=== PATIENT | male | born 1960 ===

== ENCOUNTER → 2024-07-06 08:04 | Outpatient (BNVA) | payer MEDICARE, SELFPAY | PROVIDERS: PCP Nurse Practitioner Primary Care; Referring Provider Nurse Practitioner Primary Care; Visit Provider Physician Assistant Surgical | DX: J44.9 Chronic obstructive pulmonary disease, unspecified (principal); F17.200 Nicotine dependence, unspecified, uncomplicated | CPT/HCPCS: 94618; 99205 ==

== ENCOUNTER 2024-07-06 09:29 | Outpatient (REF) | payer MEDICARE, SELFPAY ==
--- OUTSIDE RECORDS SUMMARY | 2024-07-06 09:31 | XMS_ITS | Encounter Summary ---
[facility] Organization [facility] [place] [address] Care Team Providers Care Driver/Merchandiser Name Role Phone Stormy Jeffery APRN Primary Care Provider [phone] Encounter Details Date Type Department Care Team (Latest Contact Info) Description 04/18/2024 Travel Social History Tobacco Use Types Packs/Day Years Used Date Smoking Tobacco: Never Assessed Sex and Gender Information Value Date Recorded Sex Assigned at Not on file Gender Identity Not on file Sexual Orientation Not on file documented as of this encounter Plan of Treatment Not on file documented as of this encounter Visit Diagnoses Not on filedocumented in this encounter Care Teams Driver/Merchandiser Relationship Specialty Start Date End Date Stormy Jeff[place] [address] [place] [address] PCP - General Urgent Care 02/03/24 documented as of this encounter
--- OUTSIDE RECORDS SUMMARY | 2024-07-06 09:31 | XMS_ITS | Encounter Summary ---
Author Organization [facility] [place] [address] Care Team Providers Care Steel Unloader Name Role Phone Stormy Jeffery APRN Primary Care Provider [phone] Reason for Referral * Consultation (Routine) - Closed Specialty Diagnoses / Procedures Referred By Charly escudero Referred To Contact Dermatology Diagnoses Skin lesion of back Stormy [place] [address] [place] [address] [facility] Dermatology [address] [place] [address] Referral ID Status Reason Start Date Expiration Date V isits Requested Visits Authorized [id number] Closed Consult, Test & Treat PCP Updated and/or Approved 01/27/2024 01/26/2025 1 1 Encounter Details Date Type Department Care Team (Latest Contact Info) Description 02/03/2024 Transcribe Orders eDH Incoming Referrals [phone] Stormy Jeffery APRN [place], [place] [id number] Skin lesion of back Social History Tobacco Use Types Packs/Day Years Used Date Smoking Tobacco: Never Assessed Sex and Gender Information Value Date Recorded Sex Assigned at Not on file Gender Identity Not on file Sexual Orientation Not on file documented as of this encounter Plan of Treatment Scheduled Referrals Name Type Priority Associated Diagnoses Order Schedule Referral to Dermatology Outpatient Referral Routine Skin lesion of back Ordered: 02/03/2024 documented as of this encounter Visit Diagnoses Diagnosis Skin lesion of back Unspecified disorder of skin and subcutaneous tissue documented in this encounter Care Teams Steel Unloader Relationship Specialty Start Date End Date Stormy Jeffery [place] [address] [place] [address] PCP - General Urgent Care 02/03/24 documented as of this encounter
--- OUTSIDE RECORDS SUMMARY | 2024-07-06 09:31 | XMS_ITS | Encounter Summary ---
Author Organization [facility] [place] [address] Care Team Providers Care Sports Centre Manager Name Role Phone Unavailable Primary Care Provider Unavailabl e Encounter Details Date Type Department Care Team (Late st Contact Info) Description 11/30/2023 Interpretation Only [facility] [address] [place] [id number] Chava Ware MD [address] [place] [address] Social History Tobacco Use Types Packs/Day Years Used Date Smoking Tobacco: Never Assessed Sex and Gender Information Value Date Recorded Sex Assigned at Not on file Gender Identity Not on file Sexual Orientation Not on file documented as of this encounter Plan of Treatment Not on file documented as of this encounter Procedures Procedure Name Priority Date/Time Associated Diagnosis Comments XR CHEST ONE VIEW STAT 11/30/2023 7:5 8 PM EDT documented in this encounter Results * XR Chest One View (11/30/2023 7:58 PM EDT) PT CLASS E RAD ADMITDTTM [id number] RAD PT RAD INFO [id number]^Brooke an^Chava RAD EXAM DESC XCXR1^XR Chest 1 View^RIS RAD Anatomical Region Laterality Modality Chest N/A Radiographic Janine ging 11/30/2023 7:58 PM EDT Impressions 11/30/2023 8:11 PM EDT No acute finding. Thank you for letting us participate in the care of this patient. ??If you are a health care provider and have any questions regarding this report, please contact the number below. ??For patients who have questions please contact the health long term care phlebotomist that requested your imaging first. ? Narrative 11/30/2023 8:11 PM EDT EXAMINATION: XR Chest 1 View CLINICAL HISTORY: Chest Pain TECHNIQUE: Single view chest COMPARISON: None FINDINGS: The lungs are clear. The joselo and cardiomediastinal silhouette are normal. No pleural collection or pneumothorax. Review of bone windows is unremarkable. Procedure Note Mac Bedoya MD - 11/30/2023 EXAMINATION: XR Chest 1 View CLINICAL HISTORY: Chest Pain TECHNIQUE: Single view chest COMPARISON: None FINDINGS: The lungs are clear. The joselo and cardiomediastinal silhouette are normal.No pleural collection or pneumothorax. Review of bone windows is unremarkable. IMPRESSION No acute finding. Thank you for letting us participate in the care of this patient. If youare a health care provider and have any questions regarding this report,please contact the number below. For patients who have questions please contactthe health long term care phlebotomist that requested your imaging first. Chava Ware MD IMG DX ORDERABLES documented in this encounter Visit Diagnoses Not on filedocumented in this encounter
--- OUTSIDE RECORDS SUMMARY | 2024-07-06 09:31 | XMS_ITS | Encounter Summary ---
[place] [address] Care Team Providers Care Contract Management Specialist Name Role Phone Stormy Jeffery APRN Primary Care Provider [phone] Encounter Details Date Type Department Care Team (Late st Contact Info) Description 05/25/2024 [place] [id number] Nadine Noriega RT Social History Tobacco Use Types Packs/Day Years Used Date Smoking Tobacco: Never Assessed Sex and Gender Information Value Date Recorded Sex Assigned at Not on file Gender Identity Not on file Sexual Orientation Not on file documented as of this encounter Miscellaneous Notes * Telephone Encounter - Nadine Noriega RT - 05/25/2024 3:37 PM EDT Called Alexa in follow up to her message requesting pulm rehab appointment for René- she noted that she is his DPOA. Reviewed currently unable to find this documentation in edh. reviewed [facility] pulmonary rehab currently on hold secondary to staffing limitations. documented in this encounter Plan of Treatment Not on file documented as of this encounter Visit Diagnoses Not on filedocumented in this encounter Care Teams Contract Management Specialist Relationship Specialty Start Date End Date Stormy Jeffery [place] [address] [place] [address] PCP - General Urgent Care 02/03/24 documented as of this encounter
--- OUTSIDE RECORDS SUMMARY | 2024-07-06 09:31 | XMS_ITS | Encounter Summary ---
Author [place] [address] Care Team Providers Care Sheet Metal Welder Name Role Phone Stormy Jeffery APRN Primary Care Provider [phone] Reason for Referral * Rehabilitation (Routine) - Authorized Specialty Diagnoses / Procedures Referred By Charly escudero Referred To Contact Rehabilitation Diagnoses Centrilobular emphysema Stormy [place] [address] [place] [address] [facility] [place] [address] Referral ID Status Reason Start Date Expiration Date Visits Requested Visits Authorized [id number] Authorized Evaluate and Treat PCP Updated and/or Approved 04/22/2024 04/22/2025 12 12 Encounter Details Date Type Department Care Team (Latest Contact Info) Description 05/06/2024 Transcribe Orders eDH Incoming Referrals [phone] Stormy Jeffery APRN [place], [place] [id number] Centrilobular emphysema Social History Tobacco Use Types Packs/Day Years Used Date Smoking Tobacco: Never Assessed Sex and Gender Information Value Date Recorded Sex Assigned at Not on file Gender Identity Not on file Sexual Orientation Not on file documented as of this encounter Plan of Treatment Scheduled Referrals Name Type Priority Associated Diagnoses Orde r Schedule Referral to Pulmonary Rehab Outpatient Referral Routine Centrilobular emphysema Ordered: 05/06/2024 documented as of this encounter Visit Diagnoses Diagnosis Centrilobular emphysema Other emphysema documented in this encounter Care Teams Sheet Metal Welder Relationship Specialty Start Date End Date Stormy Jeffery APRN [facility] [place] [address] PCP - General Urgent Care 02/03/24 documented as of this encounter
--- OUTSIDE RECORDS SUMMARY | 2024-07-06 09:31 | XMS_ITS | Encounter Summary ---
Author Organization [facility] Address [facility] [place] [address] Care Team Providers Care Missile Pad Mechanic Name Role Phone Stormy Jeffery CATHERINE Primary Care Provider [phone] Reason for Visit * Consultation (Routine) - Closed Specialty Diagnoses / Procedures Referred By Charly escudero Referred To Contact Dermatology Diagnoses Skin lesion of back KurtStormy hobsonCATHERINE [address] [place] [address] [facility] Dermatology [address] [place] [address] Referral ID Status Reason Start Date Expiration Date V isits Requested Visits Authorized [id number] Closed Consult, Test & Treat PCP Updated and/or Approved 01/27/2024 01/26/2025 1 1 Encounter Details Date Type Department Care Team (Late st Contact Info) Description 06/29/2024 3:20 PM EDT Office Visit Dermatology at [facility] [address] [place] [phone] Meet Gaxiola MD [facility] [address] [address] Neoplasm of unspecified behavior of bone, soft tissue, and skin Social History Tobacco Use Types Packs/Day Years Used Date Smoking Tobacco: Never Assessed Sex and Gender Information Value Date Recorded Sex Assigned at Not on file Gender Identity Not on file Sexual Orientation Not on file documented as of this encounter Progress Notes * Meet Gaxiola MD - 06/29/2024 3:20 PM EDT Images from the original note were not included. DEPARTMENT OF DERMATOLOGY Medical Dermatology Clinic Note Provider: Meet Gaxiola MD Patient's preferred name Henrry Preferred contact method for results [x]Phone []myD-H []Letter Detailed phone message OK? Yes Are there any other people with whom we may discuss your care? No Past Medical History Date, location, treatment Melanoma No Dysplastic nevi No SCC No BCC No AKs Yes UV Exposure & Protection N Other relevant past medical history - Depression Family History Details Melanoma Unknown NMSC Unknown Other relevant family history No Social History Occupation: Pre-Procedure Questions Details Allergy to lidocaine, epinephrine, Dermabond, chlorhexidine, or adhesives Bleeding disorder or blood thinners Implanted devices (Pacemaker, defibrillator, deep brain stimulator, cochlear implant) No History of Present Illness: Henrry Conley is a 64 y.o. Patient is referred to the clinic at [facility] of Stormy Jeffery for a concerning lesion on the left shoulder. Patient reports the following: - Lesion on the left shoulder, present for ~5 years. Slowly increasing in size. Patient endorses picking at lesion. He has applied bacitracin previously without improvement. It has a history of spontaneous bleeding. Review of Systems: General: Feeling well. Skin: No other skin concerns. Medications: Reviewed in eD-H Allergies: Reviewed in eD-H Skin Examination: Focused skin examination of the back was normal with the exception of the findings below. Assessment/Plan DDx. BCC vs. Traumatic Erosion - 2cm pink scaly plaque with hemorrhagic crust on the left shoulder (Figure 1). - Discussed common etiologies of BCC and other common skin cancers. - Recommended a skin biopsy to confirm/clarify the nature of the skin lesion. After discussion of potential risks (scarring, bleeding, infection) and recurrence, patient agreed to proceed. - Patient denies known allergies to lidocaine and epinephrine. Procedure: Skin shave biopsy Location: Left posterior shoulder Time of procedure: 3:26 PM Discussed indications for procedure and expectations including risks and benefits. Verbal consent obtained. Time out performed. Skin prepped with alcohol. Local anesthesia with 1% xylocaine, 1/100,000 epinephrine. A sample of the lesion was removed by shave technique to the level of the dermis and s ubmitted to Pathology. Hemostasis obtained (AlCl). There were no complications; patient tolerated the procedure well. Wound dressed. Post-procedure expectations, wound care and activity restrictions reviewed. - Follow-up based on pathology results. Figure 1 Photo(s) taken and charted with patient's verbal consent. Other: N/A RTC: Pending pathology; 6 months for FSE []Note routed to post secondary professional [x]Recall placed in scheduling system []Appointment scheduled at checkout Scribe attestation: Donte Jb Patricia has performed the documentation for this encounter in the presence of and acting as a scribe for Meet Gaxiola MD. I performed the above scribed service and agree with the accuracy of the documentation in this encounter. Reviewed and signed by: Meet Gaxiola MD Dermatology [facility] Patient seen and evaluated with staff patient case coordinator: Elissa Epperson MD Department of Dermatology [facility] documented in this encounter Plan of Treatment Pending Results Name Type Priority Associated Diagnoses Date /Time Surgical Pathology, Dermatology Pathology/Cyto logy Routine Neoplasm of unspecified behavior of bone, soft tissue, and skin 06/29/2024 3:34 PM EDT documented as of this encounter Visit Diagnoses Diagnosis Neoplasm of unspecified behavior of bone, soft tissue, and skin documented in this encounter Care Teams Missile Pad Mechanic Relationship Specialty Start Date End Date Stormy Jeffery APRN [facility] [address] PCP - General Urgent Care 02/03/24 documented as of this encounter
--- OUTSIDE RECORDS SUMMARY | 2024-07-06 09:31 | XMS_ITS | Encounter Summary ---
[facility] [place] [address] Care Team Providers Care Helicopter Pilot Instructor Name Role Phone Stormy Jeffery APRN Primary Care Provider [phone] Encounter Details Date Type Department Care Team (Latest Contact Info) Description 06/29/2024 Travel Social History Tobacco Use Types Packs/Day Years Used Date Smoking Tobacco: Never Assessed Sex and Gender Information Value Date Recorded Sex Assigned at Not on file Gender Identity Not on file Sexual Orientation Not on file documented as of this encounter Plan of Treatment Not on file documented as of this encounter Visit Diagnoses Not on filedocumented in this encounter Care Teams Helicopter Pilot Instructor Relationship Specialty Start Date End Date Stormy Jeffery [place] [address] [place] [address] PCP - General Urgent Care 02/03/24 documented as of this encounter
--- OUTSIDE RECORDS SUMMARY | 2024-07-06 09:31 | XMS_ITS | Encounter Summary ---
[place] [address] Care Team Providers Care Electronic Scale Subassembler Name Role Phone Unavailable Primary Care Provider Unavailabl e Encounter Details Date Type Department Care Team (Late st Contact Info) Description 11/30/2023 Interpretation Only [facility] [address] [place] [phone] Chava Ware MD [address] [place] [address] Social History Tobacco Use Types Packs/Day Years Used Date Smoking Tobacco: Never Assessed Sex and Gender Information Value Date Recorded Sex Assigned at Not on file Gender Identity Not on file Sexual Orientation Not on file documented as of this encounter Plan of Treatment Not on file documented as of this encounter Procedures Procedure Name Priority Date/Time Associated Diagnosis Comments CT ABDOMEN AND PELVIS W CONTRAST STAT 11/30/2023 8:51 PM EDT documented in this encounter Results * CT Abdomen & Pelvis w Contrast (11/30/2023 8:51 PM EDT) PT CLASS E RAD ADMITDTTM [id number] RAD PT RAD INFO [id number]^Brooke an^Chava RAD EXAM DESC CTAPW^CT Abdomen and Pelvis w/ Contrast^RIS RAD Anatomical Region Laterality Modality Abdomen, Pelvis Computed Tomogra phy 11/30/2023 8:50 PM EDT Impressions 11/30/2023 9:11 PM EDT 1. ??No acute infectious/inflammatory process within the abdomen or pelvis. 2. ??Diverticulosis with no evidence of acute diverticulitis. 3. ??Severe centrilobular emphysema in the lung bases. Thank you for letting us participate in the care of this patient. ??If you are a health care provider and have any questions regarding this report, please contact the number below. ??For patients who have questions please contact the health patient care that requested your imaging first. ? Electronically signed by: Mandeep Mora MD, [facility] ([phone]), at 11/30/2023 9:11 PM Narrative 11/30/2023 9:11 PM EDT EXAMINATION: CT Abdomen and Pelvis w/ Contrast CLINICAL HISTORY: sob, tachycardic, abdo pain x weeks TECHNIQUE: Helical CT of the abdomen and pelvis following the intravenous administration of 100 mL of Omnipaque 350. Oral contrast was not administered. COMPARISON: None FINDINGS: Lower chest: Extensive centrilobular emphysema. No airspace opacity to suggest pneumonia. No pleural effusions. Large right middle lobe bulla. Liver: Normal size and attenuation without lesions. Bile ducts: Nondilated. Gallbladder: No calcified gallstones. Normal caliber wall. Pancreas: Normal attenuation without ductal dilatation. Spleen: Normal. Adrenals: Normal. Kidneys: Normal renal size. Normal symmetric renal enhancement. No hydronephrosis. No renal or ureteral calculi within limitations of contrast-enhanced technique. Urinary Bladder: Normal. Vasculature: Atherosclerotic disease of the nonaneurysmal abdominal aorta. Origins of the celiac axis and SMA are widely patent. Normal caliber of the IVC. The portal vein and hepatic veins are patent. Lymph Nodes: No lymphadenopathy. Bowel: Normal lower esophagus. Moderate distention of the stomach with ingested material with otherwise normal appearance of the stomach. Normal duodenum. No air or fluid filled dilated loops of bowel to suggest obstruction. Small quantity of stool throughout the colon. Diverticulosis involving the descending colon and sigmoid colon with no evidence of acute diverticulitis. Normal terminal ileum. Normal appendix. No bowel wall thickening. Peritoneum and retroperitoneum: No free fluid. No pneumoperitoneum. No loculated fluid collection or mesenteric inflammation. Abdominal wall: Trace fat-containing umbilical hernia with no adjacent inflammation. Trace left fat-containing inguinal hernia with no inflammation. Reproductive organs: Normal. Osseous structures: Well-circumscribed peripherally sclerotic 6 mm lesion in the medial right iliac bone (series 3 image 95), with no aggressive features. No acute osseous findings. No suspicious osseous lesions. Procedure Note Mandeep Mora MD - 11/30/2023 EXAMINATION: CT Abdomen and Pelvis w/ Contrast CLINICAL HISTORY: sob, tachycardic, abdo pain x weeks TECHNIQUE: Helical CT of the abdomen and pelvis following theintravenous administration of 100 mL of Omnipaque 350. Oral contrast was notadministered. COMPARISON: None FINDINGS: Lower chest: Extensive centrilobular emphysema. No airspace opacity tosuggest pneumonia. No pleural effusions. Large right middle lobe bulla. Liver: Normal size and attenuation without lesions. Bile ducts: Nondilated. Gallbladder: No calcified gallstones. Normal caliber wall. Pancreas: Normal attenuation without ductal dilatation. Spleen: Normal. Adrenals: Normal. Kidneys: Normal renal size. Normal symmetric renal enhancement. No hydronephrosis. No renal or ureteral calculi within limitations of contrast-enhanced technique. Urinary Bladder: Normal. Vasculature: Atherosclerotic disease of the nonaneurysmal abdominalaorta. Origins of the celiac axis and SMA are widely patent. Normal caliber ofthe IVC. The portal vein and hepatic veins are patent. Lymph Nodes: No lymphadenopathy. Bowel: Normal lower esophagus. Moderate distention of the stomach withingested material with otherwise normal appearance of the stomach. Normal duodenum.No air or fluid filled dilated loops of bowel to suggest obstruction. Small quantity of stool throughout the colon. Diverticulosis involving thedescending colon and sigmoid colon with no evidence of acute diverticulitis. Normal terminal ileum. Normal appendix. No bowel wall thickening. Peritoneum and retroperitoneum: No free fluid. No pneumoperitoneum. Noloculated fluid collection or mesenteric inflammation. Abdominal wall: Trace fat-containing umbilical hernia with no adjacent inflammation. Trace left fat-containing inguinal hernia with noinflammation. Reproductive organs: Normal. Osseous structures: Well-circumscribed peripherally sclerotic 6 mm lesionin the medial right iliac bone (series 3 image 95), with no aggressive features.No acute osseous findings. No suspicious osseous lesions. IMPRESSION 1. No acute infectious/inflammatory process within the abdomen orpelvis. 2. Diverticulosis with no evidence of acute diverticulitis. 3. Severe centrilobular emphysema in the lung bases. Thank you for letting us participate in the care of this patient. If youare a health care provider and have any questions regarding this report,please contact the number below. For patients who have questions please contactthe health patient care that requested your imaging first. Electronically signed by: Mandeep Mora MD, [facility]([phone]), at 11/30/2023 9:11 PM Chava Ware MD IMG CT ORDERABLES documented in this encounter Visit Diagnoses Not on filedocumented in this encounter
--- OUTSIDE RECORDS SUMMARY | 2024-07-06 09:31 | XMS_ITS | Encounter Summary ---
Author Organization [facility] [place] [address] Care Team Providers Care Reed Or Wind Instrument Repairer Name Role Phone Stormy Jeffery APRN Primary Care Provider [phone] [phone] Encounter Details Date Type Department Care Team (Late st Contact Info) Description 03/26/2024 Interpretation Only [address] [phone] Andres Magallon MD [address] [place] [address] Social History Tobacco Use Types Packs/Day Years [...] Diagnosis Comments XR CHEST ONE VIEW STAT 03/26/2024 4:5 2 PM EDT documented in this encounter Results * XR Chest One View (03/26/2024 4:52 PM EDT) PT CLASS E RAD ADMITDTTM [id number] RAD PT RAD MD INFO [id number]^Naun ^Andres RAD EXAM DESC XCXR1^XR Chest 1 View^RIS RAD WORKSTATION ID [id number] RAD Anatomical Region Laterality Modality Chest N/A Radiographic Janine ging 03/26/2024 4:52 PM EDT Impressions 03/26/2024 5:34 PM EDT No acute cardiopulmonary process. I have personally reviewed the image(s) and the resident's interpretation and agree with the findings, Marva Chaidez MD at 03/26/2024 5:34 PM Thank you for letting us participate in the care of this patient. ??If you are a health care provider and have any questions regarding this report, please contact the number below. ??For patients who have questions please contact the health care asst that requested your imaging first. ? Electronically signed by: Marva Chaidez MD, [facility] ([phone]), at 03/26/2024 5:34 PM Narrative 03/26/2024 5:34 PM EDT EXAMINATION: XR Chest 1 View CLINICAL HISTORY: Chest Pain TECHNIQUE: Single AP chest radiograph. COMPARISON: Chest radiograph, 11/30/2023. FINDINGS: No focal consolidation, pneumothorax, or pleural effusion. Normal cardiomediastinal silhouette, hilar contours, and pulmonary vasculature. No displaced rib fractures. Procedure Note Marva Chaidez MD - 03/26/2024 EXAMINATION: XR Chest 1 View CLINICAL HISTORY: Chest Pain TECHNIQUE: Single AP chest radiograph. COMPARISON: Chest radiograph, 11/30/2023. FINDINGS: No focal consolidation, pneumothorax, or pleural effusion. Normal cardiomediastinal silhouette, hilar contours, and pulmonaryvasculature. No displaced rib fractures. IMPRESSION No acute cardiopulmonary process. I have personally reviewed the image(s) and the resident's interpretationand agree with the findings, Marva Chaidez MD at 03/26/2024 5:34 PM Thank you for letting us participate in the care of this patient. If youare a health care provider and have any questions regarding this report,please contact the number below. For patients who have questions please contactthe health care asst that requested your imaging first. Andres Magallon MD IMG DX ORDERABLES documented in this encounter Visit Diagnoses Not on filedocumented in this encounter Care Teams Reed Or Wind Instrument Repairer Relationship Specialty Start Date End Date Stormy Jeffery APRN [facility] [address] PCP - General Urgent Care 02/03/24 documented as of this encounter
--- OUTSIDE RECORDS SUMMARY | 2024-07-06 09:31 | XMS_ITS | Clinical Summary ---
Author [place] [address] Care Team Providers Care Wire Mill Operator Name Role Phone Stormy Jeffery APRN Primary Care Provider [phone] [phone] Encounters Date Type Department Care Team Description 06/29/2024 3:20 PM EDT Office Visit Dermatology at [facility] [address] [place] [address] Meet Gaxiola MD Neoplasm of unspecified behavior of bone, soft tissue, and skin 06/29/2024 Travel 05/25/2024 [place] [address] Nadine Noriega RT 05/06/2024 Transcribe Orders eDH Incoming Referrals [phone] Stormy Jeffery APRN Centrilobular emphysema 04/20/2024 Interpretation Only [address] [phone] Stormy Jeffery APRN 04/18/2024 7:21 AM EDT - 04/18/2024 11:59 PM EDT Hospital [place] [address] Stormy Jeffery APRN Abdominal bloating Discharge Disposition: Home 04/18/2024 Travel 04/16/2024 Interpretation Only [address] [phone] Chava Ware MD from Last 3 Months Social History Tobacco Use Types Packs/Day Years Used Date Smoking Tobacco: Never Assessed Sex and Gender Information Value Date Recorded Sex Assigned at Not on file Gender Identity Not on file Sexual Orientation Not on file Plan of Treatment Health Maintenance Due Date Last Done Comments CT Colonography 1962 Colonoscopy 1962 Colorectal Cancer Screening 1962 FIT DNA 1962 FIT 1962 Sigmoidoscopy (10 year) with FIT yearly 1962 Sigmoidoscopy 1962 HIV screen 1980 Hepatitis C Screening 1980 Lipid Screening 1980 Tetanus/Diphtheria/Pertussis Vaccines (1 - Tdap) 03/15 Zoster vaccine (1 of 2) 2012 Advance Directive 2017 Covid-19 Vaccine (1 - season) 2024 Influenza (Flu) vaccine (1 o f 1 - Influenza standard series) 05/15/2024 Procedures Procedure Name Priority Date/Time Associated Diagnosis Comments ECHO SCAN (SCAN) 04/20/2024 12:[address] ABDOMEN AND PELVIS W CONTRAST Routine 04/18/2024 9:40 AM EDT Abdominal bloating XR CHEST PA AND LATERAL STAT 04/16/2024 7:52 PM EDT ORDS - PROVIDER CARE SCAN 04/12/2024 12:00 AM EDT ORDS - PROVIDER CARE SCAN 04/12/2024 12:00 AM EDT ECG SCAN 04/12/2024 12:00 AM EDT LAB SCAN 04/12/2024 12:00 AM EDT LAB SCAN 04/12/2024 12:00 AM EDT ORDS - PROVIDER CARE SCAN 04/11/2024 12:00 AM EDT from Last 3 Months Results * Scan Doc: Echo (04/20/2024 12:00 AM EDT) Anatomical Region Laterality Modality Cardiac Other Narrative 04/20/2024 12:00 AM EDT Ordered by an unspecified provider. Scanning Provider MEDIA MGR SCAN EXT O RDR/RSLT * CT Abdomen & Pelvis w Contrast (04/18/2024 9:40 AM EDT) WORKSTATION ID [id number] RAD Anatomical Region Laterality Modality Abdomen, Pelvis Computed Tomogra phy Impressions 04/18/2024 11:56 AM EDT 1. ??Colonic diverticulosis redemonstrated. No acute process or obstructive lesion seen.. Moderate stool burden in colon. 2. ??Unchanged emphysematous change at bases. 3. ??No mass lesion. 4. ??Normal appearance of liver. Thank you for letting us participate in the care of this patient. ??If you are a health care provider and have any questions regarding this report, please contact the number below. ??For patients who have questions please contact the health pet care technician that requested your imaging first. ? Narrative 04/18/2024 11:56 AM EDT EXAMINATION: CT ABDOMEN AND PELVIS W CONTRAST CLINICAL HISTORY: long hx of constipation, now with bloating and abd pain, near syncope. long hx of alcohol use. R14.0, Abdominal distension (gaseous) TECHNIQUE: Helical CT of the abdomen and pelvis following the intravenous administration of contrast. Administered 95.0 ml of OMNIPAQUE 350.00 mg/ml. Oral contrast was administered. COMPARISON: CT abdomen pelvis, November 2023. FINDINGS: Lower chest: Unchanged large bullae and centrilobular emphysema at lung bases. No pleural or pericardial effusion. Coronary artery calcifications are present. Liver: Normal size and attenuation without lesions. Patent portal and hepatic veins. Bile ducts: Nondilated. Gallbladder: No calcified gallstones. Normal caliber wall. Pancreas: Normal attenuation without ductal dilatation. Spleen: Normal. Adrenals: Normal. Kidneys: Symmetric nephrograms. No collecting system calculi. Unchanged 6 mm hypodensity in LEFT lower lobe, too small to characterize likely cyst. Urinary Bladder: Normal. Vasculature: No abdominal aortic aneurysm. Atherosclerotic aortic wall calcifications. Patent mesenteric vessels. Lymph Nodes: No enlarged lymph nodes. Bowel: Nondilated, no wall thickening. The enteric contrast reaches the rectum. * ??Stomach-partially distended by contrast. * ??Duodenum- normal course and caliber. * ??Small bowel- no dilatation * ??Colon- unchanged diffuse LEFT colonic diverticulosis. No wall thickening or pericolonic inflammation. Cecum, terminal ileum and appendix are normal. Moderate stool within the colon. Peritoneum and retroperitoneum: No free fluid or loculated fluid collection. No pneumoperitoneum. No mesenteric inflammation. Abdominal wall: LEFT inguinal hernia containing mesenteric fat, series 6 image 47. 10 mm umbilical hernia containing mesenteric fat series 6 image 67. Reproductive organs: Normal appearance of prostate gland. Osseous structures: No vertebral body height loss. RIGHT iliac bone-unchanged well-circumscribed 9 mm focus with symmetric sclerotic rim, series 4 image 512. This may represent a cyst or evolving partially calcified intraosseous lipoma. Procedure Note Neha Almaguer MD - 04/18/2024 EXAMINATION: CT ABDOMEN AND PELVIS W CONTRAST CLINICAL HISTORY: long hx of constipation, now with bloating and abd pain,near syncope. long hx of alcohol use. R14.0, Abdominal distension (gaseous) TECHNIQUE: Helical CT of the abdomen and pelvis following theintravenous administration of contrast. Administered 95.0 ml of OMNIPAQUE 350.00mg/ml. Oral contrast was administered. COMPARISON: CT abdomen pelvis, November 2023. FINDINGS: Lower chest: Unchanged large bullae and centrilobular emphysema at lungbases. No pleural or pericardial effusion. Coronary artery calcifications arepresent. Liver: Normal size and attenuation without lesions. Patent portal andhepatic veins. Bile ducts: Nondilated. Gallbladder: No calcified gallstones. Normal caliber wall. Pancreas: Normal attenuation without ductal dilatation. Spleen: Normal. Adrenals: Normal. Kidneys: Symmetric nephrograms. No collecting system calculi. Unchanged 6mm hypodensity in LEFT lower lobe, too small to characterize likely cyst. Urinary Bladder: Normal. Vasculature: No abdominal aortic aneurysm. Atherosclerotic aortic wall calcifications. Patent mesenteric vessels. Lymph Nodes: No enlarged lymph nodes. Bowel: Nondilated, no wall thickening. The enteric contrast reaches therectum. * Stomach-partially distended by contrast. * Duodenum- normal course and caliber. * Small bowel- no dilatation * Colon- unchanged diffuse LEFT colonic diverticulosis. No wallthickening or pericolonic inflammation. Cecum, terminal ileum and appendix are normal. Moderate stool within the colon. Peritoneum and retroperitoneum: No free fluid or loculated fluidcollection. No pneumoperitoneum. No mesenteric inflammation. Abdominal wall: LEFT inguinal hernia containing mesenteric fat, series 6 image 47. 10 mm umbilical hernia containing mesenteric fat series 6 image 67. Reproductive organs: Normal appearance of prostate gland. Osseous structures: No vertebral body height loss. RIGHT iliac bone-unchanged well-circumscribed 9 mm focus with symmetric sclerotic rim, series 4 image 512. This may represent a cyst or evolving partially calcified intraosseous lipoma. IMPRESSION 1. Colonic diverticulosis redemonstrated. No acute process orobstructive lesion seen.. Moderate stool burden in colon. 2. Unchanged emphysematous change at bases. 3. No mass lesion. 4. Normal appearance of liver. Thank you for letting us participate in the care of this patient. If youare a health care provider and have any questions regarding this report,please contact the number below. For patients who have questions please contactthe health pet care technician that requested your imaging first. Electronically signed by: Neha Almaguer MD, [facility]([phone]), at 04/18/2024 11:56 AM Stormy Jeffery APRN [facility] ORDERABLES * XR Chest PA & Lateral (Generic) (04/16/2024 7:52 PM EDT) PT CLASS E RAD ADMITDTTM [id number] RAD PT RAD INFO [id number]^Diana pulliamn^Chava RAD EXAM DESC XCXR2^XR Chest 2 Views^RIS RAD WORKSTATION ID [id number] [facility][NOTE 3] Anatomical Region Laterality Modality Chest N/A Radiographic Janine ging 04/16/2024 7:52 PM EDT Impressions 04/16/2024 8:26 PM EDT No interval change. No acute cardiopulmonary process. Preliminary report signed by: Haider Dempsey MD at 04/16/2024 8:15 PM I have personally reviewed the image(s) and the resident's interpretation and agree with the findings, Shine Villafana MD at 04/16/2024 8:26 PM Thank you for letting us participate in the care of this patient. ??If you are a health care provider and have any questions regarding this report, please contact the number below. ??For patients who have questions please contact the health pet care technician that requested your imaging first. ? Narrative 04/16/2024 8:26 PM EDT EXAMINATION: XR Chest 2 Views CLINICAL HISTORY: chest pain TECHNIQUE: 2 view chest radiograph: PA and lateral COMPARISON: Chest radiograph 03/31/2024, 03/26/2024 and CTA of the chest 11/30/2023 FINDINGS: Stable hyperinflation of the lungs and coarse interstitial markings, consistent with COPD/emphysema. No focal consolidation, pneumothorax, or pleural effusion. Normal cardiomediastinal silhouette, hilar contours, and pulmonary vasculature. No acute displaced rib fractures. Chronic right posterolateral ninth rib fracture deformity. Procedure Note Shine Villafana MD - 04/16/2024 EXAMINATION: XR Chest 2 Views CLINICAL HISTORY: chest pain TECHNIQUE: 2 view chest radiograph: PA and lateral COMPARISON: Chest radiograph 03/31/2024, 03/26/2024 and CTA of the chest 11/30/2023 FINDINGS: Stable hyperinflation of the lungs and coarse interstitial markings,consistent with COPD/emphysema. No focal consolidation, pneumothorax, or pleural effusion. Normal cardiomediastinal silhouette, hilar contours, and pulmonaryvasculature. No acute displaced rib fractures. Chronic right posterolateral ninth rib fracture deformity. IMPRESSION No interval change. No acute cardiopulmonary process. Preliminary report signed by: Haider Dempsey MD at 48:15 PM I have personally reviewed the image(s) and the resident's interpretationand agree with the findings, Shine Villafana MD at 04/16/2024 8:26 PM Thank you for letting us participate in the care of this patient. If youare a health care provider and have any questions regarding this report,please contact the number below. For patients who have questions please contactthe health pet care technician that requested your imaging first. Electronically signed by: Shine Villafana MD, [facility]([phone]), at 04/16/2024 8:26 PM Chava Ware MD IMG DX ORDERABLES * Scan Doc: Ords - Provider Care (04/12/2024 12:00 AM EDT) Only the most recent of3 resultswithin the time period is included. Narrative 04/12/2024 12:00 AM EDT Ordered by an unspecified provider. Scanning Provider MEDIA MGR SCAN EXT O RDR/RSLT * Scan Doc: Lab (04/12/2024 12:00 AM EDT) Only the most recent of2 resultswithin the time period is included. Narrative 04/12/2024 12:00 AM EDT Ordered by an unspecified provider. Scanning Provider MEDIA MGR SCAN EXT O RDR/RSLT * Scan Doc: ECG (04/12/2024 12:00 AM EDT) Narrative 04/12/2024 12:00 AM EDT Ordered by an unspecified provider. Scanning Provider MEDIA MGR SCAN EXT O RDR/RSLT from Last 3 Months Care Teams Wire Mill Operator Relationship Specialty Start Date End Date Stormy Jeff[place] [address] [place] [address] PCP - General Urgent Care 02/03/24
--- OUTSIDE RECORDS SUMMARY | 2024-07-06 09:31 | XMS_ITS | Encounter Summary ---
[place] [address] Care Team Providers Care Elevator Constructor Supervisor Name Role Phone Stormy Jeffery APRN Primary Care Provider [phone] Reason for Referral * Diagnostic Test (Routine) - Closed Specialty Diagnoses / Procedures Referred By Charly escudero Referred To Contact Radiology Diagnoses Abdominal bloating Procedures CT Abdomen & Pelvis w Contrast Stormy Jeffery [place] [address] [place] [address] [facility] [place] [address] Referral ID Status Reason Start Date Expiration Date V isits Requested Visits Authorized [id number] Closed Specialty Service Requested 04/12/2024 10/13/2025 1 1 Reason for Visit * Diagnostic Test (Routine) - Closed Specialty Diagnoses / Procedures Referred By Charly escudero Referred To Contact Radiology Diagnoses Abdominal bloating Procedures CT Abdomen & Pelvis w Contrast [place] [address] [facility] [place] [address] Referral ID Status Reason Start Date Expiration Date V isits Requested Visits Authorized [id number] Closed Specialty Service Requested 04/12/2024 10/13/2025 1 1 Encounter Details Date Type Department Care Team (Latest Contact Info) Description 04/18/2024 7:21 AM EDT - 04/18/2024 11:59 PM EDT Hospital [place] [address] Stormy Jeffery [place] [address] [place] [address] Abdominal bloating Discharge Disposition: Home Social History Tobacco Use Types Packs/Day Years [...] Comments CT ABDOMEN AND PELVIS W CONTRAST Routine 04/18/2024 9:40 AM EDT Abdominal bloating documented in this encounter Results * CT Abdomen & Pelvis w Contrast (04/18/2024 9:40 AM EDT) [employer] WORKSTATION ID [id number] RAD Anatomical Region Laterality Modality Abdomen, Pelvis [...] who have questions please contact the health chiropractic care that requested your imaging first. ? Electronically signed by: Neha Almaguer MD, [facility] ([phone]), at 04/18/2024 11:56 AM Narrative 04/18/2024 11:56 AM EDT EXAMINATION: CT [...] patients who have questions please contactthe health chiropractic care that requested your imaging first. Stormy Jeffery APRN IM CT ORDERABLES documented in this encounter Visit Diagnoses Diagnosis Abdominal bloating Flatulence, eructation, and gas pain documented in this encounter Administered Medications Inactive Administered Medications - up to 3 most recent administrations Medication Order MAR Action Action Date Dose Rate Site iohexoL (Omnipaque) (350 mg/mL) solution 0-200 mL 0-200 mL, Intravenous, ONCE PRN, 1 dose, Starting on Thu04/18/24 at 0940, Until Thu04/18/24 at 0940, Per Protocol, Warning Vesicant/Irritant Medication , Radiology Contrast, Routine Given 04/18/2024 9:40 AM EDT 96 mLs iohexoL (Omnipaque) (350 mg/mL) solution 0-50 mL 0-50 mL, Oral, ONCE, 1 dose, On Thu04/18/24 at 1030, Warning Vesicant/Irritant Medication , Radiology Contrast, Routine Given 04/18/2024 10:30 AM EDT 50 mLs documented in this encounter Care Teams Elevator Constructor Supervisor Relationship Specialty Start Date End Date Stormy [place] [address] [place] [address] PCP - General Urgent Care 02/03/24 documented as of this encounter
--- OUTSIDE RECORDS SUMMARY | 2024-07-06 09:31 | XMS_ITS | Encounter Summary ---
[place] [address] Care Team Providers Care Data Support Specialist Name Role Phone Unavailable Primary Care Provider Unavailabl e Encounter Details Date Type Department Care Team (Late st Contact Info) Description 11/30/2023 Interpretation Only [facility] [address] [place] [id number] Chava Ware MD [address] [place] [address] Social History Tobacco Use Types Packs/Day Years Used Date Smoking Tobacco: Never Assessed Sex and Gender Information Value Date Recorded Sex Assigned at Not on file Gender Identity Not on file Sexual Orientation Not on file documented as of this encounter Plan of Treatment Not on file documented as of this encounter Procedures Procedure Name Priority Date/Time Associated Diagnosis Comments CT CHEST PULMONARY EMBOLISM W CONTRAST STAT 11/30/2023 8:50 PM EDT documented in this encounter Results * CT Angiogram Chest for Pulmonary Embolus w Contrast (11/30/2023 8:50 PM EDT) PT CLASS E RAD ADMITDTTM [id number] RAD PT RAD INFO [id number]^[place]^Chava RAD EXAM DESC CTCHPE^CT Angio Chest PE Protocol^RIS RAD Anatomical Region Laterality Modality Chest Computed Tomogra phy 11/30/2023 8:50 PM EDT Impressions 11/30/2023 9:06 PM EDT No pulmonary embolism. No acute finding. Thank you for letting us participate in the care of this patient. ??If you are a health care provider and have any questions regarding this report, please contact the number below. ??For patients who have questions please contact the health home care provider that requested your imaging first. ? Electronically signed by: Mac Bedoya MD, [facility] ([phone]), at 11/30/2023 9:06 PM Narrative 11/30/2023 9:06 PM EDT EXAMINATION: CT Angio Chest PE Protocol CLINICAL HISTORY: hyoxia, sob, tachycardia, mild cp, acute in onset TECHNIQUE: Helical CT angiogram of the chest was performed after the intravenous administration of 100 cc of Omnipaque 350. Thin-section reconstructions as well as coronal and sagittal MIP reformatted images were generated to aid in evaluation. COMPARISON: None FINDINGS: No evidence of pulmonary embolism. Mediastinum and joselo are normal. Severe centrilobular emphysema. Airways are normal. No pleural collection or pneumothorax. Chest wall is unremarkable. Review of bone windows is normal. Procedure Note Mac Bedoya MD - 11/30/2023 EXAMINATION: CT Angio Chest PE Protocol CLINICAL HISTORY: hyoxia, sob, tachycardia, mild cp, acute in onset TECHNIQUE: Helical CT angiogram of the chest was performed after theintravenous administration of 100 cc of Omnipaque 350. Thin-section reconstructions aswell as coronal and sagittal MIP reformatted images were generated to aid in evaluation. COMPARISON: None FINDINGS: No evidence of pulmonary embolism. Mediastinum and joselo are normal.Severe centrilobular emphysema. Airways are normal. No pleural collection or pneumothorax. Chest wall is unremarkable. Review of bone windows is normal. IMPRESSION No pulmonary embolism. No acute finding. Thank you for letting us participate in the care of this patient. If youare a health care provider and have any questions regarding this report,please contact the number below. For patients who have questions please contactthe health home care provider that requested your imaging first. Chava Ware MD IMG CT ORDERABLES documented in this encounter Visit Diagnoses Not on filedocumented in this encounter
--- OUTSIDE RECORDS SUMMARY | 2024-07-06 09:31 | XMS_ITS | Encounter Summary ---
[place] [address] Care Team Providers Care Virtual Customer Assistant Name Role Phone Stormy Jeffery APRN Primary Care Provider [phone] Encounter Details Date Type Department Care Team (Late st Contact Info) Description 04/20/2024 Interpretation Only [address] [phone] Stormy Jeffery [place] [address] [place] [address] Social History Tobacco Use Types Packs/Day Years Used Date Smoking Tobacco: Never Assessed Sex and Gender Information Value Date Recorded Sex Assigned at Not on file Gender Identity Not on file Sexual Orientation Not on file documented as of this encounter Plan of Treatment Pending Results Name Type Priority Associated Diagnoses Date /Time US Echocardiogram Imaging Routine 024 10:16 AM EDT documented as of this encounter Visit Diagnoses Not on filedocumented in this encounter Care Teams Virtual Customer Assistant Relationship Specialty Start Date End Date Stormy Jeffery [place] [address] [place] [address] PCP - General Urgent Care 02/03/24 documented as of this encounter
--- OUTSIDE RECORDS SUMMARY | 2024-07-06 09:31 | XMS_ITS | Encounter Summary ---
[facility] [place] [address] Care Team Providers Care Gas Plant Repairer Name Role Phone Stormy Jeffery APRN Primary Care Provider [phone] Encounter Details Date Type Department Care Team (Late st Contact Info) Description 04/16/2024 Interpretation Only [facility] [address] [place] [id number] Chava Ware MD [address] [place] [address] Social History Tobacco Use Types Packs/Day Years Used Date Smoking Tobacco: Never Assessed Sex and Gender Information Value Date Recorded Sex Assigned at Not on file Gender Identity Not on file Sexual Orientation Not on file documented as of this encounter Plan of Treatment Not on file documented as of this encounter Procedures Procedure Name Priority Date/Time Associated Diagnosis Comments XR CHEST PA AND LATERAL STAT 04/16/2024 7:52 PM EDT documented in this encounter Results * XR Chest PA & Lateral (Generic) (04/16/2024 7:52 PM EDT) PT CLASS E RAD ADMITDTTM [id number] RAD PT RAD INFO [id number]^Diana grimaldo^Chava RAD EXAM DESC XCXR2^XR Chest 2 Views^RIS RAD WORKSTATION ID [id number] RAD Anatomical Region Laterality Modality Chest N/A [...] who have questions please contact the health rn long term care that requested your imaging first. ? Electronically signed by: Shine Villafana MD, [facility] ??([phone]), at 04/16/2024 8:26 PM Narrative 04/16/2024 8:26 PM EDT EXAMINATION: XR [...] patients who have questions please contactthe health rn long term care that requested your imaging first. Electronically signed by: Shine Villafana MD, [facility]([phone]), at 04/16/2024 8:26 PM Chava Ware MD IMG DX ORDERABLES documented in this encounter Visit Diagnoses Not on filedocumented in this encounter Care Teams Gas Plant Repairer Relationship Specialty Start Date End Date Stormy [place] [address] [place] [address] PCP - General Urgent Care 02/03/24 documented as of this encounter
--- OUTSIDE RECORDS SUMMARY | 2024-07-06 09:31 | XMS_ITS | Encounter Summary ---
Author Organization [facility], [facility] [place] [address] Care Team Providers Care Contact Centre Supervisor Name Role Phone Stormy Jeffery APRN Primary Care Provider [phone] Encounter Details Date Type Department Care Team (Late st Contact Info) Description 03/31/2024 Interpretation Only [address] [id number] Dontrell Erazo MD [address] [place] [address] Social History Tobacco Use Types Packs/Day Years [...] Diagnosis Comments XR CHEST ONE VIEW STAT 03/31/2024 11: 04 AM EDT documented in this encounter Results * XR Chest One View (03/31/2024 11:04 AM EDT) PT CLASS E RAD ADMITDTTM [id number] RAD PT RAD INFO [id number]^Findle y^Christopher^Beverley d RAD EXAM DESC XCXR1^XR Chest 1 View^RIS RAD WORKSTATION ID [id number] RAD Anatomical Region Laterality Modality Chest N/A Radiographic Janine ging 03/31/2024 11:0 1 AM EDT Impressions 03/31/2024 11:07 AM EDT No interval change. No acute cardiopulmonary pathology. Thank you for letting us participate in the care of this patient. ??If you are a health care provider and have any questions regarding this report, please contact the number below. ??For patients who have questions please contact the health child care development specialist that requested your imaging first. ? Electronically signed by: Baltazar Dockery MD, [facility] ([phone]), at 03/31/2024 11:07 AM Narrative 03/31/2024 11:07 AM EDT EXAMINATION: XR Chest 1 View CLINICAL HISTORY: chest pain TECHNIQUE: Frontal radiograph of the chest COMPARISON: March 26, 2024 FINDINGS: The lungs are hyperinflated. There is diffuse mild prominence of pulmonary markings, similar in appearance to prior. No focal airspace consolidation, pneumothorax or pleural effusions. Procedure Note Baltazar Dockery MD - 03/31/2024 EXAMINATION: XR Chest 1 View CLINICAL HISTORY: chest pain TECHNIQUE: Frontal radiograph of the chest COMPARISON: March 26, 2024 FINDINGS: The lungs are hyperinflated. There is diffuse mild prominence ofpulmonary markings, similar in appearance to prior. No focal airspaceconsolidation, pneumothorax or pleural effusions. IMPRESSION No interval change. No acute cardiopulmonary pathology. Thank you for letting us participate in the care of this patient. If youare a health care provider and have any questions regarding this report,please contact the number below. For patients who have questions please contactthe health child care development specialist that requested your imaging first. Electronically signed by: Baltazar Dockery MD, [facility]([phone]), at 03/31/2024 11:07 AM Dontrell Erazo MD IMG DX ORDERABL ES documented in this encounter Visit Diagnoses Not on filedocumented in this encounter Care Teams Contact Centre Supervisor Relationship Specialty Start Date End Date Stormy Jeffery APRN [facility] [place] [address] PCP - General Urgent Care 02/03/24 documented as of this encounter
== END 2024-07-06 09:30 | disposition home or self-care (01) ==
LOC: LBN 09:29
PROVIDERS: PCP Nurse Practitioner Primary Care; Visit Provider Physician Assistant Surgical
DX: J44.9 Chronic obstructive pulmonary disease, unspecified (principal); F17.200 Nicotine dependence, unspecified, uncomplicated
CPT/HCPCS: 87070; 87205

== ENCOUNTER → 2024-10-05 10:18 | Outpatient (BNVA) | payer MEDICAID, SELFPAY | PROVIDERS: PCP Nurse Practitioner Primary Care; Referring Provider Nurse Practitioner Primary Care; Visit Provider Physician Assistant Surgical | DX: J44.9 Chronic obstructive pulmonary disease, unspecified (principal); F17.200 Nicotine dependence, unspecified, uncomplicated | CPT/HCPCS: 99214 ==